=== PATIENT | female | born 1980 | race Caucasian/White ===

== ENCOUNTER 2016-09-25 15:23 | Emergency (ER) | payer MEDICAID ==
[2016-09-25 15:39] VITALS: BP 135/62; PULSE 78; RESP 18; TEMP 98; O2SAT 97
--- NOTE | 2016-09-25 17:26 | UCPHY ---
H & P Time Seen by Provider: 09/25/16 16:48 Patient Type: Established HPI/ROS: HPI Left jaw pain. 35-year-old female by private vehicle. She reports onset of left jaw pain last night which woke her up. She describes this as being in the temporal mandibular joint area and radiating up through the left side of her face and down into her neck. She reports that she does have a history of grinding her teeth. She does have a bite block but she does not always wear this. There is no history of trauma. She denies dental pain. She has not had a fever. No chest pain. The pain is made worse with chewing and yawning. She describes the pain as an aching and stabbing sensation. ROS: Constitutional: No fever, no chills. No weakness. Eyes: No discharge. No changes in vision. ENT: No sore throat. No nasal congestion or rhinorrhea. As above. Respiratory: No cough. No shortness of breath. Cardiac: No chest pain, no palpitations. Musculoskeletal: As above. Skin: No rashes. Neurological: No headache. No focal weakness or altered sensation. Past medical history: Anxiety, depression. She takes Lexapro for this. Primary care physician is Dr. Umana. Social history: Nonsmoker. She is . She is here by herself. Physical Exam: General Appearance: Alert, no distress. This patient is responding to questions appropriately and in full sentences. This patient appears well- hydrated and well-nourished. Eyes: Pupils equal and round no pallor or injection. No lid edema, erythema or injection. ENT, Mouth: Mucous membranes are moist. The pharyngeal tissues are unremarkable. No edema or swelling. No asymmetry suggestive of abscess. No erythema or exudates. No gingival or buccal mucosal swelling noted on the left. No pain on apical compression of the upper and lower dentition on the left. No facial swelling. No facial erythema. Some pain on palpation over the TMJ on the left with mandibular movement. The external auditory canal and tympanic membranes are normal on the left by speculum examination. Neurological: Motor sensory function is grossly intact. Cranial nerves are normal. Gait is normal. Skin: Warm and dry, no rashes. Musculoskeletal: Neck is supple and nontender. No cervical lymphadenopathy. Extremities are symmetrical. All joints range without pain or impingement. Psychiatric: No agitation. No depression. Database: EKG: Imaging: Procedures: Emergency department course: Patient's presentation is likely secondary to a temporomandibular joint dysfunction/pain syndrome. Plan will be to treat her with high-dose NSAIDs for the next 3 days as well as Flexeril for muscle relaxation. She will follow up with her primary care physician, Dr. Umana on Monday or Monday of this week for re-evaluation. She feels comfortable with this plan. Return to emergency department precautions reviewed with her. All of her questions were answered. She was discharged in good condition. Differential Diagnosis: The differential diagnosis on this patient includes but is not limited to TMJ syndrome. Mandibular trauma, otitis media, otitis externa, trigeminal neuralgia unlikely. This represents a partial list of diagnoses considered. These considerations are based on history, physical exam, past history, reassessment and diagnostic testing. Smoking Status: Never smoked Constitutional: Initial Vital Signs Temperature (C) 36.6 C 09/25/16 15:36 Heart Rate 78 09/25/16 15:36 Respiratory Rate 18 09/25/16 15:36 Blood Pressure 135/62 H 09/25/16 15:36 O2 Sat (%) 97 09/25/16 15:36 O2 Delivery Mode Room Air Allergies/Adverse Reactions: prochlorperazine [From Compazine] Allergy (Verified 10/08/15 21:07) prochlorperazine edisylate [From Compazine] Allergy (Verified 10/08/15 21:07) prochlorperazine maleate [From Compazine] Allergy (Verified 10/08/15 21:07) Home Medications: Medication Instructions Recorded Lexapro 10 MG 10/08/15 Cyclobenzaprine [Flexeril 10 MG 10 mg PO TID #9 tab 09/25/16 (*)] Departure - Departure Disposition: Home, Routine, Self-Care Clinical Impression: Temporomandibular joint (TMJ) pain Condition: Good Instructions: Temporomandibular Disorder (ED) Additional Instructions: Read and follow provided instructions. Follow-up with your primary care physician, Dr. Umana, as discussed on Monday for re-evaluation. She can refer you to a specialist as needed for ongoing management. Take medication as prescribed. Ibuprofen dosin mg every 6 hours with meals for the next 3 days only. Return to the emergency department for worsening pain, fever, swelling, discoloration or other serious concerns. Referrals: Jazmin Umana MD [Primary Care Provider] - As per Instructions Prescriptions: Cyclobenzaprine [Flexeril 10 MG (*)] 10 mg PO TID #9 tab - PQRS PQRS Measurement: Not applicable.
[2016-09-25] MEDS ORDERED: CYCLOBENZAPRINE 10 MG TAB PO ONE (17:35)
[2016-09-25] MEDS ORDERED: CYCLOBENZAPRINE 10 MG TAB ONE (17:37)
== END 2016-09-25 17:42 | disposition home or self-care (01) ==
LOC: CED 15:23
DX: M26.609 Unspecified temporomandibular joint disorder, unspecified side (principal)
CPT/HCPCS: 99214-PO; G0463-PO